=== PATIENT | female | born 1975 | race Caucasian/White ===

== ENCOUNTER 2025-09-20 12:56 | Emergency (ER) | payer BC ==
[2025-09-20] MEDS ORDERED: Sodium Chloride 0.9% 10 ML Syringe FLUSH PRN (13:07)
[2025-09-20 13:16] LABS: MEAN PLATELET VOLUME 9.6 fL (6.0-10.0); PLATELET COUNT,PLT 204.0 K/uL (150-500); RED BLOOD CELL COUNT 4.15 M/uL (3.80-5.80); RED CELL DISTRIBUTION WIDTH 12.8 % (11.0-16.0); WHITE BLOOD CELL COUNT,WBC 7.6 K/uL (4.0-11.0)
[2025-09-20] MEDS: Propofol 200 MG/20 ML SDV IVPUSH ONE (13:19)
[2025-09-20 13:24] LABS: BLOOD UREA NITROGEN,BUN 12 mg/dL (8-26); CARBON DIOXIDE,CO2 21.0 mmol/L (21.0-32.0); CHLORIDE,CL 101 mmol/L (98-107); CREATININE 0.99 mg/dL (0.55-1.02); ESTIMATED GFR 69 mL/min (>60); GLUCOSE RANDOM 225 mg/dL (74-100); SODIUM,NA 139 mmol/L (136-145)
[2025-09-20 13:27] LABS: POTASSIUM,K 2.9 mmol/L (3.5-5.1)
[2025-09-20 13:32] LABS: TROPONIN I HIGH SENSITIVITY 16.4 pg/ml (<=60.4)
[2025-09-20] MEDS: propofoL 1,000 MG/100 ML 100 ML IV SCH (13:38)
== END 2025-09-20 14:15 ==
LOC: LB.ED 12:56
DX: I46.9 Cardiac arrest, cause unspecified (principal); E87.6 Hypokalemia; Z92.89 Personal history of other medical treatment
CPT/HCPCS: 31500; 36415; 36680; 51702; 71045; 80048; 83735; 84484; 85027; 92950; 93005; 96365; 96375; 99291-25; 99292; A0425; A0429; J2704; J3480; J7030